=== PATIENT | female | born 1995 | race African-American/Black ===

== ENCOUNTER 2024-04-22 11:56 | Emergency (ER) | payer OTHER ==
[~2024-04-22] VITALS: Ht 172.7 cm; Wt 80.0 kg
[2024-04-22 12:01] VITALS: TEMP 98.3; O2SAT 99
[2024-04-22] MEDS ORDERED: ALBUTEROL (12:01)
[2024-04-22 12:49] VITALS: BP 151/92
[2024-04-22] MEDS: IBUPROFEN 600MG TABLET PO ONE (12:49)
[2024-04-22 12:59] VITALS: PULSE 92; RESP 16
[2024-04-22 13:00] LABS: BASOPHILS % 0.9 % (0.0-2.0); HEMATOCRIT. 38.3 % (36.0-48.0); HEMOGLOBIN. 12.4 g/dL (12.0-16.0); LYMPHOCYTES % 18.8 % (20.0-50.0); MEAN CORPUSCULAR HEMOGLOBIN 26.1 pg (28.0-32.0); MEAN CORPUSCULAR HGB CONC 32.4 g/dL (31.0-37.0); MEAN CORPUSCULAR VOLUME 80.5 fL (81.0-99.0); MONOCYTES % 7.4 % (2.0-8.0); NEUTROPHILS % 67.9 % (40.0-76.0); PLATELET 340 x1000/uL (130-400); RED BLOOD CELL COUNT 4.76 mill/uL (4.2-5.4); RED CELL DISTRIBUTION WIDTH 15.9 % (11.6-14.6); WHITE BLOOD COUNT 5.9 x1000/uL (4.5-11.0)
[2024-04-22 13:06] LABS: CHLORIDE 104 mEq/L (98-107); POTASSIUM 3.1 mEq/L (3.5-5.1); SODIUM 138 mEq/L (136-145)
[2024-04-22 13:07] LABS: CARBON DIOXIDE 23 mEq/L (21-32)
[2024-04-22 13:08] LABS: CALCIUM 9.9 mg/dL (8.7-10.4)
[2024-04-22 13:12] LABS: CREATININE 0.8 mg/dL (0.6-1.0); GLUCOSE 84 mg/dL (70-105); UREA NITROGEN BLOOD 7 mg/dL (9-23)
[2024-04-22 13:15] LABS: HCG SCREEN NEGATIVE
[2024-04-22 13:19] LABS: TROPONIN I HIGH SENSITIVITY < 4 ng/L (3.0-34)
[2024-04-22] MEDS: POTASSIUM CHLORIDE 20MEQ/PACKET PO ONE (15:00)
== END 2024-04-22 15:05 | disposition home or self-care (01) ==
LOC: ER 11:56
DX: R07.89 Other chest pain (principal); F14.10 Cocaine abuse, uncomplicated; E87.6 Hypokalemia; F10.10 Alcohol abuse, uncomplicated
CPT/HCPCS: 36415; 71045; 80048; 84484; 84703; 85025; 93005; 99285